=== PATIENT | female | born 1975 | race Caucasian/White ===

== ENCOUNTER 2017-09-01 16:04 | Emergency (ER) | payer MEDICAID ==
[~2017-09-01] VITALS: Ht 170.2 cm; Wt 101.7 kg
[~2017-09-01 16:04] MED LIST: NITR100C7 PO; [UNRECOGNIZED DRUG - CODE] PO
[2017-09-01 16:11] VITALS: BP 124/80
--- NOTE | 2017-09-01 16:23 | NUR ---
PT AMBULATED TO BED 4.
--- NOTE | 2017-09-01 16:25 | NUR ---
PATIENT PRESENTS TO ED WITH C/O PAIN TO RIGHT INGUINAL AREA PAIN X 2 WKS---DENIES INJURY, DENIES FALL, NO DYSURIA. STATED SHE HAS HX OF OVARIAN CYST RX----NONE . DENIES N/V/D; SKIN IS PINK/WARM/DRY; AAOX4 WITH EVEN AND STEADY GAIT; LUNGS CLEAR BL; HR EVEN AND REGULAR; PT DENIES ANY FEVER, CP, SOB, OR COUGH AT THIS TIME; PATIENT STATES PAIN OF 7/10 AT THIS TIME; VSS; PATIENT POSITIONED FOR COMFORT; HOB ELEVATED; BEDRAILS UP X2; BED DOWN.
[2017-09-01 17:13] LABS: ANION GAP 12.9 (8-16); CREATININE 0.7 mg/dL (0.6-1.3); POTASSIUM 3.9 mmol/L (3.5-5.1)
[2017-09-01 17:14] LABS: BASOPHILS # (AUTO) 0.1 K/uL (0.00-0.22); EOSINOPHILS # (AUTO) 0.2 K/uL (0-0.4); EOSINOPHILS % (AUTO) 1.9 % (0.0-4.0); HEMATOCRIT 37.5 % (36-48); HEMOGLOBIN 12.1 g/dL (12.0-16.0); LYMPHOCYTES # (AUTO) 1.9 K/uL (2.5-16.5); LYMPHOCYTES % (AUTO) 18.1 % (20.5-51.1); MEAN CORPUSCULAR HEMOGLOBIN 23 pg (27-31); MEAN CORPUSCULAR HGB CONC 32 g/dL (33-37); MEAN CORPUSCULAR VOLUME 71.3 fL (80-94); MONOCYTES # (AUTO) 0.6 K/uL (0.8-1.0); MONOCYTES % (AUTO) 5.4 % (1.7-9.3); NEUTROPHILS % (AUTO) 73.6 % (42.2-75.2); PLATELET COUNT (AUTO) 393 K/uL (140-450); RED BLOOD CELL COUNT(AUTO) 5.26 MIL/uL (4.20-5.40); RED CELL DISTRIBUTION WIDTH 16.2 % (11.6-13.7); WHITE BLOOD COUNT (AUTO) 10.8 K/uL (4.8-10.8)
--- NOTE | 2017-09-01 17:14 | NUR ---
PT CAME BACK FROM CT.
[2017-09-01 17:18] LABS: ALBUMIN 3.1 g/dL (3.4-5.0); TOTAL BILIRUBIN 0.2 mg/dL (0.0-1.0)
[2017-09-01 17:41] LABS: APPEARANCE,URINE SL CLOUDY (CLEAR); BILIRUBIN,URINE NEGATIVE (NEGATIVE); BLOOD, URINE NEGATIVE (NEGATIVE); COLOR,URINE YELLOW (YELLOW); LEUKOCYTE ESTERASE ,URINE NEGATIVE (NEGATIVE); NITRITE, URINE POSITIVE (NEGATIVE); UGLUCOSE NEGATIVE (NEGATIVE)
[2017-09-01 17:59] LABS: RBC,URINE NONE SEEN /HPF (0-5)
[2017-09-01 18:25] VITALS: BP 120/72
--- NOTE | 2017-09-01 18:25 | NUR ---
Patient discharged with v/s stable. Written and verbal after care instructions given and explained. Patient alert, oriented and verbalized understanding of instructions. Ambulatory with steady gait. All questions addressed prior to discharge. ID band removed. Patient advised to follow up with PMD. Rx of BACTRIM AND MIRALAX given. Patient educated on indication of medication including possible reaction and side effects. Opportunity to ask questions provided and answered.
--- NOTE | 2017-09-03 15:59 | NUR ---
ADDENDUM: URINE CULTURE RESULTS , E.COLI. REFERRED TO DR. WEBSTER. CALLED PATIENT FOR NEW PRESCRIPTION OF MACROBID 100MG. PO BID X7 DAYS, PHONE LINE BUSY
--- NOTE | 2017-09-03 16:15 | NUR ---
CALLED [phone] LINE BUSY
--- NOTE | 2017-09-03 16:37 | NUR ---
TELEPHONE LINE STILL BUSY
--- NOTE | 2017-09-03 18:28 | NUR ---
TELEPHONE LINE STILL BUSY
--- NOTE | 2017-09-03 19:52 | NUR ---
I CALLED PT CORE SHAPER MR GARNETT @ [phone]. HE GAVE ME PT'S NEW CELL PHONE [phone]. PT PICKED UP HER RX OF MACROBID 100MG BID X 7DAYS.
== END 2017-09-01 18:25 | disposition home or self-care (01) ==
LOC: MED 16:04
DX: N39.0 Urinary tract infection, site not specified (principal); K59.00 Constipation, unspecified; E27.8 Other specified disorders of adrenal gland
CPT/HCPCS: 36415; 80053; 81001; 81025; 85025; 87086; 87186; 99285

== ENCOUNTER 2017-12-14 12:10 | Emergency (ER) | payer MEDICAID ==
[~2017-12-14] VITALS: Ht 167.6 cm; Wt 99.8 kg
[2017-12-14 12:17] VITALS: BP 135/96
--- NOTE | 2017-12-14 12:22 | NUR ---
AMBULATES TO BED 4
--- NOTE | 2017-12-14 12:30 | NUR ---
42 YO F PT C/O HEADACHE AND DIZZINESS X 3 DAYS. HAD ONE EPISODE OF N/V 2 DAYS AGO DENIES NOW. PAIN DESCRIBED PRESSURE IN BACK OF HEAD AND TO THE NECK. WAS SEEN HERE TWO DAYS AGO FOR SAME THING AND DC'D HOME. AAOX4. GCS 15. CMS INTACT. RR EVEN AND UNLABORED. LUNGS CLEAR. ER MD CARCAMO NOTIFIED. PT NEEDS MET. SAFETY PRECAUTIONS IN PLACE. WILL CONTINUE TO MONITOR.
[2017-12-14] MEDS ORDERED: MECLIZINE 25 MG TAB PO ONE (12:55)
[2017-12-14] MEDS ORDERED: KETOROLAC 30 MG/ML VIAL IM ONE (12:55)
--- NOTE | 2017-12-14 13:05 | NUR ---
PT UP FOR DISCHARGE AT THIS TIME. PT JUST MEDICATED, WILL OBSERVE FOR MEDICATION REACTIONS PRIOR TO DISCHARGE.
[2017-12-14 13:37] VITALS: BP 122/87
--- NOTE | 2017-12-14 13:38 | NUR ---
Note alex in EDM - 12/14/17 at 1339 by [email or web address] Patient discharged with v/s stable. Written and verbal after care instructions given and explained. Patient verbalized understanding. Ambulatory with steady gait. All questions addressed prior to discharge. Advised to follow up with PMD.
== END 2017-12-14 13:39 | disposition home or self-care (01) ==
LOC: MED 12:10
DX: R51 Headache (principal); R03.0 Elevated blood-pressure reading, without diagnosis of hypertension
CPT/HCPCS: 96372; 99283; J1885; J8597

== ENCOUNTER 2018-12-19 16:52 | Emergency (ER) | payer MEDICAID ==
[~2018-12-19] VITALS: Ht 167.6 cm; Wt 106.6 kg
[2018-12-19 16:58] VITALS: BP 141/90
--- NOTE | 2018-12-19 16:58 | NUR ---
PATIENT TO ER CHAIR Timmy
--- NOTE | 2018-12-19 17:05 | NUR ---
PATIENT IS A 43 Y/O FEMALE WHO PRESENTS TO THE ED C/O SUNBURN. PT STATES THAT SHE WAS OUT IN THE SUN X1 HOUR LAST WEEK. PT REPORTS 10/10 ACHING UPPER BACK PAIN THAT DOES NOT RADIATE. NOTED UPPER BACK TO BE IN VARIOUS SHADES OF PINK, RED AND BROWN. PT DENIES CP, SOB, N/V/D. PT AWAKE AND ALERT, RR EVEN/UNLABORED. PT REPOSITIONED FOR COMFORT, PT SITTING IN CHAIR. ER PROVIDER NOTIFIED. WILL CONTINUE TO MONITOR.
[2018-12-19] MEDS ORDERED: KETOROLAC 30 MG/ML VIAL IM ONE (17:10)
[2018-12-19 17:30] VITALS: BP 138/82
--- NOTE | 2018-12-19 17:30 | NUR ---
Patient discharged with v/s stable. Written and verbal after care instructions given and explained. Patient alert, oriented and verbalized understanding of instructions. Ambulatory with steady gait. All questions addressed prior to discharge. ID band removed. Patient advised to follow up with PMD. Rx of BACITRACIN AND NAPROSYN given. Patient educated on indication of medication including possible reaction and side effects. Opportunity to ask questions provided and answered.
== END 2018-12-19 17:30 | disposition home or self-care (01) ==
LOC: MED 16:52
DX: L55.9 Sunburn, unspecified (principal)
CPT/HCPCS: 96372; 99283; J1885

== ENCOUNTER 2019-10-29 11:55 | Emergency (ER) | payer MEDICAID ==
[~2019-10-29] VITALS: Ht 167.6 cm; Wt 104.3 kg
[2019-10-29 12:08] VITALS: BP 156/95
--- NOTE | 2019-10-29 12:17 | NUR ---
C/O SUDDEN ONSET OF RIGHT INGUINAL PAIN WITH SWELLING X YESTERDAY DENIES INJURY---LAST BM THIS AM SOFT NORMAL PER PT; DENIES DYSURIA , PT AWAKE , ALERT, AFIBRILE ,AMBULATORY WITH STEADY GAIT . HX--DENIES RX--NONE
--- NOTE | 2019-10-29 12:19 | NUR ---
DR COLÓN AT BEDSIDE EVALUATING PT.
[2019-10-29] MEDS ORDERED: KETOROLAC 30 MG/ML VIAL IVP ONE (12:20)
--- NOTE | 2019-10-29 12:25 | NUR ---
ENE G[address]AFSON PLACE IV AT LT AC.
[2019-10-29 12:32] LABS: BASOPHILS # (AUTO) 0.1 K/uL (0.00-0.22); BASOPHILS % (AUTO) 0.6 % (0.0-2.0); EOSINOPHILS # (AUTO) 0.4 K/uL (0-0.4); EOSINOPHILS % (AUTO) 3.9 % (0.0-4.0); HEMATOCRIT 35.5 % (36-48); HEMOGLOBIN 10.9 g/dL (12.0-16.0); LYMPHOCYTES % (AUTO) 27.5 % (20.5-51.1); MEAN CORPUSCULAR HEMOGLOBIN 20 pg (27-31); MEAN CORPUSCULAR HGB CONC 31 g/dL (33-37); MEAN CORPUSCULAR VOLUME 64.9 fL (80-94); MONOCYTES # (AUTO) 0.7 K/uL (0.8-1.0); MONOCYTES % (AUTO) 6.6 % (1.7-9.3); NEUTROPHILS # (AUTO) 6.6 K/uL (1.8-7.7); NEUTROPHILS % (AUTO) 61.4 % (42.2-75.2); PLATELET COUNT (AUTO) 394 K/uL (140-450); RED BLOOD CELL COUNT(AUTO) 5.47 MIL/uL (4.20-5.40); RED CELL DISTRIBUTION WIDTH 19.1 % (11.6-13.7); WHITE BLOOD COUNT (AUTO) 10.7 K/uL (4.8-10.8)
[2019-10-29 12:33] LABS: BILIRUBIN,URINE NEGATIVE (NEGATIVE); BLOOD, URINE 3+ (NEGATIVE); COLOR,URINE YELLOW (YELLOW); LEUKOCYTE ESTERASE ,URINE 1+ (NEGATIVE); NITRITE, URINE NEGATIVE (NEGATIVE); PH,URINE 6.5 (5.0-9.0); UGLUCOSE NEGATIVE (NEGATIVE)
[2019-10-29 12:34] LABS: APPEARANCE,URINE SLIGHTLY HAZY (CLEAR)
[2019-10-29 12:39] LABS: WBC,URINE 0-5 /HPF (0-5)
[2019-10-29 12:41] LABS: ANION GAP 14.7 (8-16); CARBON DIOXIDE 25.6 mmol/L (21-32); CREATININE 0.8 mg/dL (0.6-1.3); POTASSIUM 4.3 mmol/L (3.5-5.1)
--- NOTE | 2019-10-29 12:41 | NUR ---
PT TO CT VIA WHEELCHAIR
--- NOTE | 2019-10-29 12:42 | NUR ---
[facility]
[2019-10-29 12:47] LABS: ALBUMIN 3.5 g/dL (3.4-5.0); TOTAL BILIRUBIN 0.3 mg/dL (0.0-1.0)
--- NOTE | 2019-10-29 12:55 | NUR ---
PT BACK FROM [facility].
--- NOTE | 2019-10-29 14:06 | NUR ---
US AT BEDSIDE.
--- NOTE | 2019-10-29 14:17 | NUR ---
PT COMFORTABLE IN BED ,SIDE RAILS UP X1 AND LOCK.
[2019-10-29 15:31] VITALS: BP 135/78
--- NOTE | 2019-10-29 15:32 | NUR ---
Patient discharged with v/s stable. Written and verbal after care instructions given and explained regarding ovarian cyst. Patient alert, oriented and verbalized understanding of instructions. Ambulatory with steady gait. All questions addressed prior to discharge. ID band removed. Patient advised to follow up with PMD. Rx of ibuprofen given. Patient educated on indication of medication including possible reaction and side effects. Opportunity to ask questions provided and answered.
== END 2019-10-29 15:32 | disposition home or self-care (01) ==
LOC: MED 11:55
DX: N83.209 Unspecified ovarian cyst, unspecified side (principal); D25.9 Leiomyoma of uterus, unspecified; R10.31 Right lower quadrant pain; Z98.890 Other specified postprocedural states
CPT/HCPCS: 36415; 74176; 76830; 76856; 80053; 81001; 81025; 83690; 85025; 87086; 96374; 99285; J1885; Q0092

== ENCOUNTER 2020-07-09 10:41 | Emergency (ER) | payer MEDICAID ==
[~2020-07-09] VITALS: Ht 167.6 cm; Wt 104.3 kg
[2020-07-09 10:44] VITALS: BP_SYST 151; BP_DIAS 77; BP_DIAS 84
[2020-07-09] MEDS ORDERED: MECLIZINE 25 MG TAB PO ONE (11:05)
[2020-07-09] MEDS ORDERED: FAMOTIDINE 20 MG TAB PO ONE (11:05)
[2020-07-09 11:27] LABS: BASOPHILS # (AUTO) 0.1 K/uL (0.00-0.22); BASOPHILS % (AUTO) 0.7 % (0.0-2.0); EOSINOPHILS # (AUTO) 0.2 K/uL (0-0.4); EOSINOPHILS % (AUTO) 2.8 % (0.0-4.0); HEMATOCRIT 32.9 % (36-48); LYMPHOCYTES # (AUTO) 1.8 K/uL (2.5-16.5); MEAN CORPUSCULAR HEMOGLOBIN 19 pg (27-31); MEAN CORPUSCULAR HGB CONC 31 g/dL (33-37); MEAN CORPUSCULAR VOLUME 61.8 fL (80-94); MONOCYTES # (AUTO) 0.5 K/uL (0.8-1.0); MONOCYTES % (AUTO) 6.1 % (1.7-9.3); NEUTROPHILS # (AUTO) 5.4 K/uL (1.8-7.7); NEUTROPHILS % (AUTO) 68.4 % (42.2-75.2); PLATELET COUNT (AUTO) 366 K/uL (140-450); RED BLOOD CELL COUNT(AUTO) 5.32 MIL/uL (4.20-5.40); RED CELL DISTRIBUTION WIDTH 18.2 % (11.6-13.7); WHITE BLOOD COUNT (AUTO) 7.9 K/uL (4.8-10.8)
[2020-07-09] MEDS ORDERED: ACETAMINOPHEN EXTRA STRENGTH 500 MG TAB PO ONE (12:00)
[2020-07-09] MEDS ORDERED: ONDANSETRON 4 MG ODT PO ONE (12:00)
[2020-07-09 12:04] LABS: ALBUMIN 3.7 g/dL (3.4-5.0); ANION GAP 8.4 (8-16); CARBON DIOXIDE 30.5 mmol/L (21-32); CREATININE 0.7 mg/dL (0.6-1.3); POTASSIUM 3.9 mmol/L (3.5-5.1); TOTAL BILIRUBIN 0.5 mg/dL (0.0-1.0)
[2020-07-09 13:08] VITALS: BP 112/74
== END 2020-07-09 13:08 | disposition home or self-care (01) ==
LOC: MED 10:41
DX: R10.9 Unspecified abdominal pain (principal); H81.10 Benign paroxysmal vertigo, unspecified ear; G44.209 Tension-type headache, unspecified, not intractable; R03.0 Elevated blood-pressure reading, without diagnosis of hypertension; R11.0 Nausea; H92.01 Otalgia, right ear; Z98.890 Other specified postprocedural states
CPT/HCPCS: 36415; 80053; 81002; 81025; 83690; 85025; 99284; J8597; Q0162

== ENCOUNTER 2020-12-03 01:39 | Emergency (ER) | payer MEDICAID ==
[~2020-12-03] VITALS: Ht 160 cm; Wt 104.8 kg
[2020-12-03 01:55] VITALS: BP 156/92
[2020-12-03] MEDS ORDERED: IBUPROFEN 600 MG TAB PO ONE (03:50)
[2020-12-03] MEDS ORDERED: HYDROcodone/APAP 5/325 MG 1 TAB TAB PO ONE (03:50)
[2020-12-03 04:04] LABS: BASOPHILS # (AUTO) 0.1 K/uL (0.00-0.22); BASOPHILS % (AUTO) 0.7 % (0.0-2.0); EOSINOPHILS # (AUTO) 0.3 K/uL (0-0.4); EOSINOPHILS % (AUTO) 2.7 % (0.0-4.0); HEMATOCRIT 29.9 % (36-48); HEMOGLOBIN 9.2 g/dL (12.0-16.0); LYMPHOCYTES # (AUTO) 2.7 K/uL (2.5-16.5); LYMPHOCYTES % (AUTO) 23.3 % (20.5-51.1); MEAN CORPUSCULAR HEMOGLOBIN 19 pg (27-31); MEAN CORPUSCULAR HGB CONC 31 g/dL (33-37); MEAN CORPUSCULAR VOLUME 62.9 fL (80-94); MONOCYTES # (AUTO) 0.7 K/uL (0.8-1.0); MONOCYTES % (AUTO) 6.5 % (1.7-9.3); NEUTROPHILS # (AUTO) 7.7 K/uL (1.8-7.7); NEUTROPHILS % (AUTO) 66.8 % (42.2-75.2); PLATELET COUNT (AUTO) 345 K/uL (140-450); RED BLOOD CELL COUNT(AUTO) 4.74 MIL/uL (4.20-5.40); RED CELL DISTRIBUTION WIDTH 18.6 % (11.6-13.7); WHITE BLOOD COUNT (AUTO) 11.5 K/uL (4.8-10.8)
[2020-12-03 04:09] LABS: ANION GAP 13.9 (8-16); CARBON DIOXIDE 27.1 mmol/L (21-32); CREATININE 0.6 mg/dL (0.6-1.3)
[2020-12-03 04:21] LABS: ALBUMIN 3.6 g/dL (3.4-5.0); TOTAL BILIRUBIN 0.4 mg/dL (0.0-1.0)
[2020-12-03 04:31] LABS: APPEARANCE,URINE CLEAR (CLEAR); BILIRUBIN,URINE NEGATIVE (NEGATIVE); BLOOD, URINE NEGATIVE (NEGATIVE); COLOR,URINE YELLOW (YELLOW); LEUKOCYTE ESTERASE ,URINE NEGATIVE (NEGATIVE); NITRITE, URINE NEGATIVE (NEGATIVE); UGLUCOSE NEGATIVE (NEGATIVE)
[2020-12-03] MEDS ORDERED: IBUP-2213 PO (08:47)
[2020-12-03 08:55] VITALS: BP 114/70
== END 2020-12-03 08:55 | disposition home or self-care (01) ==
LOC: MED 01:39
DX: R10.2 Pelvic and perineal pain (principal); G89.29 Other chronic pain
CPT/HCPCS: 36415; 76856; 80053; 81003; 83690; 84703; 85025; 99285

== ENCOUNTER 2021-06-24 15:04 | Emergency (ER) | payer MEDICAID ==
[~2021-06-24] VITALS: Ht 167.6 cm; Wt 104.8 kg
[~2021-06-24 15:04] MED LIST changes: +IBUP-2213 PO; -NITR100C7 PO; -[UNRECOGNIZED DRUG - CODE] PO
--- NOTE | 2021-06-24 15:45 | NUR ---
CALLED TO TRIAGE, NO ANSWER
--- NOTE | 2021-06-24 16:02 | NUR ---
CALLED TO TRIAGE X2, NO ANSWER.
[2021-06-24 16:34] VITALS: BP 139/87
[2021-06-24] MEDS ORDERED: KETOROLAC 60 MG/2 ML VIAL IM ONE (17:30)
[2021-06-24] MEDS ORDERED: ONDANSETRON 4 MG ODT PO ONE (17:30)
[2021-06-24] MEDS ORDERED: ONDA8TAB87 PO (17:57)
[2021-06-24] MEDS ORDERED: IBUP-2213 PO (17:57)
[2021-06-24] MEDS ORDERED: ACET-8386 PO (17:57)
--- NOTE | 2021-06-24 18:36 | NUR ---
PATIENT COMPLAINED OF NAUSEA, ONDANSETRON PO GIVEN. PATIENT COMPLAINED OF HEADACHE 10/10, TORADOL GIVEN.
[2021-06-24 18:50] VITALS: BP 139/87
--- NOTE | 2021-06-24 18:50 | NUR ---
Patient discharged with v/s stable. Written and verbal after care instructions given and explained. Patient alert, oriented and verbalized understanding of instructions. Ambulatory with steady gait. All questions addressed prior to discharge. ID band removed. Patient advised to follow up with PMD. Rx of HYDROCODONE, IBUPROFEN, ONDANSETRON given. Patient educated on indication of medication including possible reaction and side effects. Opportunity to ask questions provided and answered.
--- NOTE | 2021-06-24 18:51 | NUR ---
Pat johnson in EDM - 06/24/21 at 1851 by KIMBERLYN PATIENT COMPLAINED OF NAUSEA, ONDANSETRON PO GIVEN. PATIENT COMPLAINED OF HEADACHE 03/15, TORADOL GIVEN.
== END 2021-06-24 18:50 | disposition home or self-care (01) ==
LOC: MED 15:04
DX: R51.9 Headache, unspecified (principal); R11.0 Nausea; Z98.890 Other specified postprocedural states; Z79.899 Other long term (current) drug therapy
CPT/HCPCS: 81002; 81025; 96372; 99283; J1885; Q0162

== ENCOUNTER 2022-01-27 08:58 | Emergency (ER) | payer MEDICAID ==
[~2022-01-27] VITALS: Ht 170.2 cm; Wt 105.5 kg
[~2022-01-27 08:58] MED LIST changes: +ACET-8386 PO; +ONDA8TAB87 PO
[2022-01-27 09:10] VITALS: BP 183/102
--- NOTE | 2022-01-27 09:21 | NUR ---
Patient ambulated to bed 4
--- NOTE | 2022-01-27 09:30 | NUR ---
Patient ambulated to bed 6.
--- NOTE | 2022-01-27 09:50 | NUR ---
Dr. Rosario evaluating patient at bedside.
[2022-01-27] MEDS ORDERED: CLONIDINE HYDROCHLORIDE 0.1 MG TAB PO ONE (09:55)
[2022-01-27] MEDS ORDERED: PROCHLORPERAZINE 10 MG/2 ML VIAL IM ONE (09:55)
[2022-01-27] MEDS ORDERED: KETOROLAC 60 MG/2 ML VIAL IM ONE (09:55)
--- NOTE | 2022-01-27 10:10 | NUR ---
Sonyed ELIAZAR to lab.
--- NOTE | 2022-01-27 10:53 | NUR ---
47 y/o feamle bib self with c/o headache x 2 days. Patient has a headache with 7/10 pain with a "burning" pain feeling. Patient is also noted with redness to right eye. Patient also c/o right arm numbness. Patient denies SOB, fever or chest pain. Patient is verbalizing she has been under increased stress the last couple of days. Medical History: Denies NKDA
--- NOTE | 2022-01-27 11:42 | NUR ---
Dr. Rosario re-evaluating patient at bedside.
[2022-01-27] MEDS ORDERED: HYDR-4004 PO (11:46)
[2022-01-27] MEDS ORDERED: TRAM50TA1 PO (11:46)
[2022-01-27] MEDS ORDERED: DEXA5SUS20 RIGHT EYE (11:46)
[2022-01-27 12:45] VITALS: BP 117/73
--- NOTE | 2022-01-27 12:45 | NUR ---
Patient discharged with v/s stable. Written and verbal after care instructions given. Patient alert, oriented and verbalized understanding of instructions. Ambulatory with steady gait. All questions addressed prior to discharge. ID band removed. Patient advised to follow up with PMD. Rx of Maxitrol, Oretic and Tramadol given. Opportunity to ask questions provided and answered.
== END 2022-01-27 12:45 | disposition home or self-care (01) ==
LOC: MED 08:58
DX: I16.0 Hypertensive urgency (principal); Z20.822 Contact with and (suspected) exposure to COVID-19; G44.209 Tension-type headache, unspecified, not intractable; Z79.899 Other long term (current) drug therapy
CPT/HCPCS: 81002; 81025; 87426; 96372; 99284; J0780; J1885

== ENCOUNTER 2022-07-11 13:25 | Emergency (ER) | payer MEDICAID ==
[~2022-07-11] VITALS: Ht 162.6 cm; Wt 72.6 kg
[~2022-07-11 13:25] MED LIST changes: -ACET-8386 PO; +ACET-8905 PO; +DEXA5SUS20 RIGHT EYE; +HYDR-4004 PO; +TRAM-748 PO
--- NOTE | 2022-07-11 13:55 | NUR ---
called name in lobby no answer
[2022-07-11 14:23] VITALS: BP 143/89
[2022-07-11] MEDS ORDERED: KETOROLAC 15 MG/ML VIAL IM ONE (16:05)
--- NOTE | 2022-07-11 16:09 | NUR ---
PT AMB TO BED 8.
[2022-07-11 16:19] LABS: BASOPHILS # (AUTO) 0.1 K/uL (0.00-0.22); EOSINOPHILS # (AUTO) 0.4 K/uL (0-0.4); EOSINOPHILS % (AUTO) 3.3 % (0.0-4.0); HEMATOCRIT 41.7 % (36-48); HEMOGLOBIN 13.5 g/dL (12.0-16.0); LYMPHOCYTES # (AUTO) 2.5 K/uL (2.5-16.5); LYMPHOCYTES % (AUTO) 23.1 % (20.5-51.1); MEAN CORPUSCULAR HEMOGLOBIN 24 pg (27-31); MEAN CORPUSCULAR HGB CONC 32 g/dL (33-37); MEAN CORPUSCULAR VOLUME 73.6 fL (80-94); MONOCYTES # (AUTO) 0.6 K/uL (0.8-1.0); MONOCYTES % (AUTO) 5.1 % (1.7-9.3); NEUTROPHILS # (AUTO) 7.3 K/uL (1.8-7.7); NEUTROPHILS % (AUTO) 67.5 % (42.2-75.2); PLATELET COUNT (AUTO) 372 K/uL (140-450); RED BLOOD CELL COUNT(AUTO) 5.67 MIL/uL (4.20-5.40); RED CELL DISTRIBUTION WIDTH 15.8 % (11.6-13.7); WHITE BLOOD COUNT (AUTO) 10.9 K/uL (4.8-10.8)
[2022-07-11] MEDS ORDERED: KETOROLAC 15 MG/ML VIAL IVP ONE (16:35)
[2022-07-11 16:40] LABS: ALBUMIN 4.2 g/dL (3.4-5.0); ANION GAP 11.5 (8-16); CARBON DIOXIDE 31.7 mmol/L (21-32); CREATININE 0.8 mg/dL (0.6-1.3); POTASSIUM 4.2 mmol/L (3.5-5.1); TOTAL BILIRUBIN 0.3 mg/dL (0.0-1.0)
--- NOTE | 2022-07-11 16:41 | NUR ---
47 y/o female bib self with c/o LLQ abdominal pain x 3 days. Per patient has been medicating with Ibuprofen but medication is no longer working for pain management. Patient denies any fever, chills or SOB. Denies any nausea, vomiting or diarrhea. Denies any sick contacts or food. LMP 06/20/22. Medical History: Denies NKDA
--- NOTE | 2022-07-11 16:42 | NUR ---
Patient taken to CT via imaging.
[2022-07-11 16:44] LABS: APPEARANCE,URINE CLEAR (CLEAR); BILIRUBIN,URINE NEGATIVE (NEGATIVE); BLOOD, URINE NEGATIVE (NEGATIVE); COLOR,URINE YELLOW (YELLOW); LEUKOCYTE ESTERASE ,URINE NEGATIVE (NEGATIVE); NITRITE, URINE NEGATIVE (NEGATIVE); UGLUCOSE NEGATIVE (NEGATIVE)
--- NOTE | 2022-07-11 16:55 | NUR ---
Patient returned from CT.
--- NOTE | 2022-07-11 16:55 | NUR ---
PT BROUGHT BACK FROM CT VIA WHEELCHAIR
--- NOTE | 2022-07-11 17:43 | NUR ---
Dr. Santana re-evaluating patient at bedside.
[2022-07-11 18:25] VITALS: BP 143/89
--- NOTE | 2022-07-11 18:25 | NUR ---
Patient discharged with v/s stable. Written and verbal after care instructions given and explained. Patient verbalized understanding. Ambulatory with steady gait. All questions addressed prior to discharge. Advised to follow up with PMD.
== END 2022-07-11 18:25 | disposition home or self-care (01) ==
LOC: MED 13:25
DX: R10.12 Left upper quadrant pain (principal); Z79.899 Other long term (current) drug therapy; Z98.890 Other specified postprocedural states
CPT/HCPCS: 36415; 74177; 80053; 81003; 83690; 85025; 96374; 99285; J1885; Q9967

== ENCOUNTER 2023-02-13 07:23 | Emergency (ER) | payer MEDICAID ==
[~2023-02-13] VITALS: Ht 167.6 cm; Wt 104.3 kg
[2023-02-13 07:25] VITALS: BP 145/80; PULSE 100; RESP 16; TEMP 97.5; O2SAT 100
[2023-02-13] MEDS ORDERED: MEDR10TA PO (07:44)
[2023-02-13 08:11] VITALS: BP 145/80; PULSE 100; RESP 16; TEMP 97.5; O2SAT 100
== END 2023-02-13 08:12 | disposition home or self-care (01) ==
LOC: MED 07:23
DX: N93.8 Other specified abnormal uterine and vaginal bleeding (principal); Z79.899 Other long term (current) drug therapy; Z98.890 Other specified postprocedural states
CPT/HCPCS: 99281